=== PATIENT | female | born 1965 | race Caucasian/White ===

== ENCOUNTER 2018-03-12 19:08 | Emergency (ER) | payer MEDICARE, MEDICAID ==
[2018-03-12] MEDS ORDERED: Ketorolac 30 MG/ML SDV IM ONE (20:25)
[2018-03-12] MEDS ORDERED: Ondansetron 4 MG Tab.DIS PO ONE (20:29)
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
--- NOTE | 2018-03-15 08:44 | CR ---
Wrist Comp Min 3V Lt CLINICAL HISTORY: Fall FINDINGS: There is a impacted fracture distal radius. Ulna appears intact. Carpal bones show no fract ure or subluxation Impression: Impacted fracture distal radius
== END 2018-03-12 21:55 | disposition home or self-care (01) ==
LOC: JP.ED 19:08
DX: S52.502A Unspecified fracture of the lower end of left radius, initial encounter for closed fracture (principal); F17.210 Nicotine dependence, cigarettes, uncomplicated; Z88.8 Allergy status to other drugs, medicaments and biological substances; Y04.0XXA Assault by unarmed brawl or fight, initial encounter
CPT/HCPCS: 29125; 73110; 96372; 99284; A9270; J1885; 99282-25

== ENCOUNTER 2018-05-30 01:34 | Emergency (ER) | payer MEDICARE, MEDICAID ==
--- NOTE | 2018-05-30 02:26 | EDM.PDOC ---
ED HPI GENERAL MEDICAL PROBLEM - General Chief Complaint: Skin Complaint Stated Complaint: POISON JEANA Time Seen by Provider: 05/30/18 02:15 Source of Information: Reports: Patient, RN Notes Reviewed History Limitations: Reports: No Limitations - History of Present Illness INITIAL COMMENTS - FREE TEXT/NARRATIVE: 52-year-old female presents emergency department today with an open wound on her forehead she does admit to scratching this, review of old medical records from the assented clinic she does have history of opioid use and dependence as well as methamphetamine use is currently on Suboxone Head Pain Score (Numeric/FACES): 8 - Related Data Allergies Allergy/AdvReac Type Severity Reaction Status Date / Time Sulfa (Sulfonamide Allergy Hives Verified 05/30/18 01:55 Antibiotics) sumatriptan [From Imitrex] Allergy Cannot Verified 05/30/18 01:55 Remember erogamide Allergy Other Uncoded 05/30/18 01:55 triptans Allergy Arrhythmias Uncoded 05/30/18 01:55 Home Meds: Home Meds Buprenorphine HCl/Naloxone HCl [Suboxone 4 mg-1 mg Sl Film] 2 each SL TID [History] Diclofenac Sodium 1 applic TOP DAILY 05/30/18 [History] Past Medical History Gastrointestinal History: Reports: Cholelithiasis, Hiatal Hernia, Other (See Below) Other Gastrointestinal History: appendectomy Genitourinary History: Reports: Pyelonephritis, UTI, Recurrent 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: Reports: Endometriosis, Other (See Below) Other 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: ovarian cyst Musculoskeletal History: Reports: Amputation, Fracture Other Musculoskeletal History: L distal radius Neurological History: Reports: CVA, Migraines Psychiatric History: Reports: Depression Endocrine/Metabolic History: Reports: Other (See Below) Other Endocrine/Metabolic History: RSD, "breast" bone fracture - Infectious Disease History Infectious Disease History: Reports: MRSA - Past Surgical History GI Surgical History: Reports: Appendectomy, Cholecystectomy Female Surgical History: Reports: Section, Oophorectomy, Tubal Ligation Social & Family History - Tobacco Use Smoking Status *Q: Current Every Day Smoker Years of Tobacco use: 35 Packs/Tins Daily: 0.5 - Caffeine Use Caffeine Use: Reports: Coffee - Recreational Drug Use Recreational Drug Use: No ED ROS GENERAL - Review of Systems Review Of Systems: See Below Constitutional: Reports: No Symptoms Skin: Reports: Erythema, Wound ED EXAM, SKIN/RASH Exam: See Below Text/Narrative:: Examination of the integument system on the face there are a couple open wounds consistent with the itch scratch cycle there is some granulation within the mild amount erythema around the wound consistent with local wound infection Exam Limited By: No Limitations General Appearance: Alert, WD/WN, No Apparent Distress Course - Vital Signs Last Recorded V/S: Last Vital Signs Temp 96.4 F 05/30/18 01:52 Pulse 83 05/30/18 01:52 Resp 18 05/30/18 01:52 BP 146/93 H 05/30/18 01:52 Pulse Ox 97 05/30/18 01:52 Departure - Departure Time of Disposition: 02:25 Disposition: Home, Self-Care 01 Condition: Good Clinical Impression: Wound infection - Discharge Information Referrals: PCP,None [Primary Care Provider] - Additional Instructions: Take full course of antibiotics, Please followup with your primary care provider in 3-5 days if not better, please call return to the emergency department with worsening of symptoms. - Assessment/Plan Plan: Assessment Acuity = acute Site and laterality = local wound infection Etiology = probably secondary to its scratch cycle Manifestations = none Location of injury = Home Lab values = none Plan Placed on clindamycin 150 mg by mouth every 6 hours 7 days, follow-up primary care 3-5 days if not better This note was dictated using [employer] voice recognition software please call with any questions on syntax or grammar.
== END 2018-05-30 02:35 | disposition home or self-care (01) ==
LOC: JP.ED 01:34
DX: S01.80XA Unspecified open wound of other part of head, initial encounter (principal); L08.9 Local infection of the skin and subcutaneous tissue, unspecified; F17.210 Nicotine dependence, cigarettes, uncomplicated; Z88.0 Allergy status to penicillin; Z88.2 Allergy status to sulfonamides; Z79.899 Other long term (current) drug therapy; X58.XXXA Exposure to other specified factors, initial encounter
CPT/HCPCS: 99283

== ENCOUNTER 2018-10-15 10:58 | Emergency (ER) | payer MEDICARE, MEDICAID ==
--- NOTE | 2018-10-15 12:26 | EDM.PDOC ---
<Hanh Etienne N - Last Filed: 10/15/18 12:18> ED HPI GENERAL MEDICAL PROBLEM - General Chief Complaint: Back Pain or Injury Stated Complaint: MEDICAL VIA [facility] Time Seen by Provider: 10/15/18 14:32 Source of Information: Reports: Patient - History of Present Illness INITIAL COMMENTS - FREE TEXT/NARRATIVE: Muriel is a 53-year-old female who presents to the ER by ambulance after spending the night in her car. States she [facility] night and was unable to start her car to return home. She reports that she took 100 mg Lyrica prior to leaving the house, and felt significant drowsiness which caused her to fall asleep in the car for the majority of the night. She did wake up with bilateral numbness in her lower extremities up to her knees, but was able to walk into [facility] and ask for help. She reports experiencing coldness, fatigue, lethargy, anxiety, and difficulty breathing at the time, which have mostly resolved. On presentation, she is moderately anxious and reports ongoing muscle cramps throughout her body. The Vargas hugger is in place. Reports worsening chronic back and right wrist pain, but states she has missed 2 Suboxone doses. She denies any recent use of alcohol or illicit drugs. 8 Pain Score (Numeric/FACES): 8 - Related Data Allergies Allergy/AdvReac Type Severity Reaction Status Date / Time Sulfa (Sulfonamide Allergy Hives Verified 10/15/18 11:37 Antibiotics) sumatriptan [From Imitrex] Allergy Cannot Verified 10/15/18 11:37 Remember erogamide Allergy Other Uncoded 10/15/18 11:37 triptans Allergy Arrhythmias Uncoded 10/15/18 11:37 Home Meds: Home Meds Buprenorphine HCl/Naloxone HCl [Suboxone 4 mg-1 mg Sl Film] 2 each SL TID [History] Diclofenac Sodium 1 applic TOP DAILY 05/30/18 [History] Diclofenac Sodium [Voltaren] 10/15/18 [History] Pregabalin [Lyrica] 10/15/18 [History] Past Medical History Gastrointestinal History: Reports: Cholelithiasis, Hiatal Hernia, Other (See Below) Other Gastrointestinal History: appendectomy Genitourinary History: Reports: Pyelonephritis, UTI, Recurrent 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: Reports: Endometriosis, Other (See Below) Other 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: ovarian cyst Musculoskeletal History: Reports: Amputation, Fracture Other Musculoskeletal History: L distal radius Neurological History: Reports: CVA, Migraines Psychiatric History: Reports: Depression Endocrine/Metabolic History: Reports: Other (See Below) Other Endocrine/Metabolic History: RSD, "breast" bone fracture - Infectious Disease History Infectious Disease History: Reports: MRSA - Past Surgical History GI Surgical History: Reports: Appendectomy, Cholecystectomy Female Surgical History: Reports: Section, Oophorectomy, Tubal Ligation Social & Family History - Tobacco Use Smoking Status *Q: Current Every Day Smoker Years of Tobacco use: 30 Packs/Tins Daily: 1 - Caffeine Use Caffeine Use: Reports: Coffee ED ROS GENERAL - Review of Systems Constitutional: Reports: Weakness, Fatigue HEENT: Reports: No Symptoms Respiratory: Reports: No Symptoms Cardiovascular: Reports: Edema. Denies: Chest Pain, Palpitations Endocrine: Reports: Fatigue GI/Abdominal: Reports: Abdominal Pain (RUQ discomfort). Denies: Constipation, Diarrhea, Nausea, Vomiting Musculoskeletal: Reports: Arm Pain (Right wrist), Back Pain, Other (Muscle cramps) Skin: Reports: Other (Coolness) Neurological: Reports: Numbness (Feet bilaterally), Weakness Psychiatric: Reports: Anxiety, Mood Lability ED EXAM,LOWER BACK PAIN/INJURY - Physical Exam Exam Limited By: Altered Mental Status General Appearance: Anxious, Mild Distress Eye Exam: Bilateral Eye: Normal Inspection Ears: Normal External Exam, Normal Canal, Hearing Grossly Normal, Normal TMs Nose: Normal Inspection Throat/Mouth: Normal Inspection, Normal Lips, Normal Oropharynx, Normal Voice Head: Atraumatic, Normocephalic. No: Facial Tenderness Neck: Normal Inspection Respiratory/Chest: No Respiratory Distress, Lungs Clear, Normal Breath Sounds Cardiovascular: Regular Rate, Rhythm, Other (Trace edema in lower extremities bilaterally) GI/Abdominal: Normal Bowel Sounds, Soft, Non-Tender, No Distention, No Mass (Female) Exam: Deferred Rectal (Female) Exam: Deferred Back Exam: Normal Inspection, Vertebral Tenderness Extremities: Normal Inspection Neurological: Alert, Other Psychiatric: Anxious, Tearful Skin Exam: Warm, Dry, Intact Course - Vital Signs Last Recorded V/S: Last Vital Signs Temp 93.8 F L 10/15/18 11:47 Pulse 70 10/15/18 11:47 Resp 19 10/15/18 11:47 BP 131/85 10/15/18 11:47 Pulse Ox 98 10/15/18 11:47 - Orders/Labs/Meds Orders: Active Orders 24 hr Category Date Time Status EKG Documentation Completion [RC] ASDIRECTED Care 10/15/18 12:16 Active Chest 1V Frontal [CR] Stat Exams 10/15/18 12:14 Taken DRUG SCREEN, URINE [URCHEM] Stat Lab 10/15/18 12:14 Ordered UA W/MICROSCOPIC [URIN] Stat Lab 10/15/18 12:14 Ordered EKG 12 Lead [EK] Routine Ther 10/15/18 12:14 Ordered Labs: Laboratory Tests 10/15/18 10/15/18 10/15/18 Range/Units 12:35 12:35 12:35 WBC 10.1 (4.5-11.0) K/uL RBC 3.93 (3.30-5.50) M/uL Hgb 11.7 L (12.0-15.0) g/dL Hct 36.3 (36.0-48.0) % MCV 92 (80-98) fL MCH 30 (27-31) pg MCHC 32 (32-36) % Plt Count 236 (150-400) K/uL Neut % (Auto) 73 H (36-66) % Lymph % (Auto) 17 L (24-44) % [place] % (Auto) 7 H (2-6) % Eos % (Auto) 3 (2-4) % Baso % (Auto) 1 (0-1) % PT 11.1 (9.5-12.0) sec INR 1.01 (0.80-1.20) Sodium 140 (140-148) mmol/L Potassium 3.9 (3.6-5.2) mmol/L Chloride 105 (100-108) mmol/L Carbon Dioxide 27 (21-32) mmol/L Anion Gap 7.8 (5.0-14.0) mmol/L BUN 20 H (7-18) mg/dL Creatinine 0.7 (0.6-1.0) mg/dL Est Cr Clr Drug Dosing 79.98 mL/min Estimated GFR (MDRD) > 60 (>60) Glucose 92 (74-106) mg/dL Calcium 8.9 (8.5-10.1) mg/dL Total Bilirubin 0.2 (0.2-1.0) mg/dL AST 13 L (15-37) U/L ALT 21 (12-78) U/L Alkaline Phosphatase 98 (46-116) U/L Creatine Kinase 87 (26-192) U/L Total Protein 6.9 (6.4-8.2) g/dL Albumin 3.2 L (3.4-5.0) g/dL Globulin 3.7 H (2.3-3.5) g/dL Albumin/Globulin Ratio 0.9 L (1.2-2.2) Departure - Departure Disposition: Home, Self-Care 01 Clinical Impression: Hypothermia Qualifiers: Encounter type: initial encounter Qualified Code(s): T68.XXXA - Hypothermia, initial encounter - Discharge Information Referrals: PCP,None [Primary Care Provider] - Forms: ED Department Discharge Additional Instructions: Please followup with your primary care provider in 3-5 days if not better, please call return to the emergency department with worsening of symptoms. <Reagan Mcfarlane - Last Filed: 10/15/18 14:32> ED ROS GENERAL - Review of Systems Review Of Systems: See Below ED EXAM,LOWER BACK PAIN/INJURY - Physical Exam Exam: See Below Text/Narrative:: Agree with the nurse practitioner students exam Departure - Departure Time of Disposition: 14:30 Condition: Fair - Assessment/Plan Plan: Assessment Acuity = acute Site and laterality = mild hypothermic event Etiology = long-term cold exposure Manifestations = none Location of injury = Home Lab values = CBC, CMP, troponin, CK, INR within normal limits EKG demonstrates a sinus rhythm no ST changes or depressions, chest x-ray shows no acute process Plan She was able to tolerate full liquids, felt she was back to her baseline, plan to discharge to home follow-up with her primary care as needed Reagan Weber MD was personally available for consultation in the ED. I have reviewed the chart and agree with the documentation as recorded by the nurse practitioner student, including the assessment, treatment plan and disposition. Reagan Weber MD personally saw and examined the patient. I have reviewed and agree with the nurse practitioner student's findings. This note was dictated using [employer] voice recognition software please call with any questions on syntax or grammar.
== END 2018-10-15 15:45 | disposition home or self-care (01) ==
LOC: JP.ED 10:58
DX: T68.XXXA Hypothermia, initial encounter (principal); F17.210 Nicotine dependence, cigarettes, uncomplicated; Z88.2 Allergy status to sulfonamides; Z91.048 Other nonmedicinal substance allergy status
CPT/HCPCS: 36415; 71045; 80053; 82550; 85025; 85610; 93005; 93010; 99285-25

== ENCOUNTER 2019-02-05 16:46 | Emergency (ER) | payer MEDICARE, MEDICAID ==
[2019-02-05] MEDS ORDERED: Ketorolac 30 MG/ML SDV IVPUSH ONE (17:41)
[2019-02-05] MEDS ORDERED: diphenhydrAMINE 50 MG/ML SDV IVPUSH ONE (17:42)
[2019-02-05] MEDS ORDERED: Sodium Chloride 0.9% 10 ML Syringe FLUSH PRN (17:42)
[2019-02-05] MEDS ORDERED: Prochlorperazine 10 MG/2 ML SDV IVPUSH ONE (17:42)
--- NOTE | 2019-02-05 17:44 | EDM.PDOC ---
<OfficerReagan - Last Filed: 02/05/19 17:42> ED HPI GENERAL MEDICAL PROBLEM - General Chief Complaint: Headache Stated Complaint: CLUSTER MIGRAINE Time Seen by Provider: 02/05/19 16:55 Source of Information: Reports: Patient, RN Notes Reviewed History Limitations: Reports: No Limitations - History of Present Illness INITIAL COMMENTS - FREE TEXT/NARRATIVE: 53-year-old female presents emergency department today complaint of migraine- type headache, she did try her abortive medication at home without relief she states she has not had a migraine in several years this does feel typical for her she does have nausea vomiting and photophobia Headache Pain Score (Numeric/FACES): 9 - Related Data Allergies Allergy/AdvReac Type Severity Reaction Status Date / Time Sulfa (Sulfonamide Allergy Hives Verified 02/05/19 17:21 Antibiotics) sumatriptan [From Imitrex] Allergy Cannot Verified 02/05/19 17:21 Remember erogamide Allergy Other Uncoded 02/05/19 17:21 triptans Allergy Arrhythmias Uncoded 02/05/19 17:21 Home Meds: Home Meds Buprenorphine HCl/Naloxone HCl [Suboxone 4 mg-1 mg Sl Film] 2 each SL DAILY 11/15 [History] Pregabalin [Lyrica] 150 mg PO BEDTIME 10/15/18 [History] Acetaminophen/Butalbital/Caff [Fioricet 325-50-40 MG] 1 each PO DAILY PRN #12 tab 02/05/19 [Rx] Ondansetron [Ondansetron ODT] 4 mg PO Q8HR 02/05/19 [History] tiZANidine [Zanaflex] 4 mg PO Q6H 02/05/19 [History] valACYclovir HCl [Valtrex] 500 mg PO DAILY 02/05/19 [History] Past Medical History Respiratory History: Reports: COPD Gastrointestinal History: Reports: Cholelithiasis, Hiatal Hernia, Other (See Below) Other Gastrointestinal History: appendectomy Genitourinary History: Reports: Pyelonephritis, UTI, Recurrent NUT GRADER History: Reports: Endometriosis, Other (See Below) Other NUT GRADER History: ovarian cyst Musculoskeletal History: Reports: Amputation, Fracture, Fibromyalgia, Osteoarthritis Other Musculoskeletal History: L distal radius. si disfunction. rsd. spondolosis Neurological History: Reports: CVA, Migraines, Neuropathy, Peripheral Psychiatric History: Reports: Depression Endocrine/Metabolic History: Reports: Other (See Below) Other Endocrine/Metabolic History: RSD, "breast" bone fracture - Infectious Disease History Infectious Disease History: Reports: MRSA - Past Surgical History GI Surgical History: Reports: Appendectomy, Cholecystectomy Female Surgical History: Reports: Section, Oophorectomy, Tubal Ligation Social & Family History - Tobacco Use Smoking Status *Q: Current Every Day Smoker Years of Tobacco use: 42 Packs/Tins Daily: 0.5 - Caffeine Use Caffeine Use: Reports: Coffee, Soda - Recreational Drug Use Recreational Drug Type: Reports: Methamphetamine ED ROS GENERAL - Review of Systems Review Of Systems: See Below Constitutional: Reports: No Symptoms HEENT: Reports: Eye Pain Respiratory: Reports: No Symptoms Cardiovascular: Reports: No Symptoms GI/Abdominal: Reports: Nausea, Vomiting - Physical Exam Exam: See Below Exam Limited By: No Limitations General Appearance: Alert, WD/WN, No Apparent Distress Eye Exam: Bilateral Eye: EOMI, Normal Fundi, Normal Inspection, PERRL Throat/Mouth: No Airway Compromise Respiratory/Chest: No Respiratory Distress Course - Vital Signs Last Recorded V/S: Last Vital Signs Temp 37.0 C 02/05/19 17:16 Pulse 73 02/05/19 17:16 Resp 16 02/05/19 17:16 BP 158/97 H 02/05/19 17:16 Pulse Ox 98 02/05/19 17:16 - Orders/Labs/Meds Orders: Active Orders 24 hr Category Date Time Status Peripheral IV Care [RC] . DIRECTED Care 02/05/19 17:42 Active Sodium Chloride 0.9% [Normal Saline] 1,000 ml Med 02/05/19 17:45 Active IV ASDIRECTED Sodium Chloride 0.9% [Saline Flush] Med 02/05/19 17:42 Active 10 ml FLUSH ASDIRECTED PRN Peripheral IV Insertion Adult [OM.PC] Urgent Oth 02/05/19 17:41 Ordered Medication Orders Sodium Chloride (Normal Saline) 1,000 mls @ 999 mls/hr IV ASDIRECTED ORALIA Last Admin: 02/05/19 17:58 Dose: 999 mls/hr Sodium Chloride (Saline Flush) 10 ml FLUSH ASDIRECTED PRN PRN Reason: Keep Vein Open Last Admin: 02/05/19 18:11 Dose: 10 ml Meds: Medications Generic Name Dose Route Start Last Admin Trade Name Corby PRN Reason Stop Dose Admin Sodium Chloride 1,000 mls @ 999 mls/hr 02/05/19 17:45 02/05/19 17:58 Normal Saline IV 999 mls/hr ASDIRECTED ORALIA Administration Sodium Chloride 10 ml 02/05/19 17:42 02/05/19 18:11 Saline Flush FLUSH 10 ml ASDIRECTED PRN Administration Keep Vein Open Discontinued Medications Generic Name Dose Route Start Last Admin Trade Name Corby PRN Reason Stop Dose Admin Diphenhydramine HCl 50 mg 02/05/19 17:42 02/05/19 18:10 Benadryl IVPUSH 02/05/19 17:43 Not Given ONETIME ONE Haloperidol Lactate 2.5 mg 02/05/19 17:58 02/05/19 18:04 Haldol IVPUSH 02/05/19 17:59 2.5 mg ONETIME ONE Administration Ketorolac Tromethamine 30 mg 02/05/19 17:41 02/05/19 17:59 Toradol IVPUSH 02/05/19 17:42 30 mg ONETIME ONE Administration Prochlorperazine Edisylate 5 mg 02/05/19 17:42 02/05/19 18:00 Compazine IVPUSH 02/05/19 17:43 5 mg ONETIME ONE Administration Departure - Departure Disposition: Home, Self-Care 01 Clinical Impression: Migraine, Elevated blood pressure reading - Discharge Information Prescriptions: Acetaminophen/Butalbital/Caff [Fioricet 325-50-40 MG] 1 each PO DAILY PRN #12 tab PRN Reason: Headache Instructions: Recurrent Migraine Headache, [id number], Pain Medicine Instructions, [id number], Hypertension, How to Take Your Blood Pressure Referrals: Jacques Rosenberg Sr, MD [Primary Care Provider] - Forms: ED Department Discharge Additional Instructions: HEADACHE MIGRAINE 1. DECREASED ACTIVITY X 24 HOURS 2. FIORCET as needed for headache and pain. Caution with additional medications. 3. TYLENOL (ACETAMINOPHEN) 4000MG PER 24 HOUR (1000MG EVERY 6 HOURS) for mild pain and fever. 4. If headache reoccurs consider Ibuprofen 800 mg or Naproxen 440 to 500mg and Benadryl 50mg with a nap in a dark room. 5. CALL PCP THIS WEEK FOR AN APPOINTMENT TO DISCUSS YOUR HEADACHE IF CONTINUES GREATER THAN 72 hour. 6. RETURN FOR INCREASED SYMPTOMS, FEVER, CHANGE IN HEADACHES CHARACTER, NUMBNESS /TINGLING, CHANGING IN VISION, DEHYDRATION DUE TO FREQUENT VOMITING, ANY NEW CONCERNS OR CHANGES. Discharge Instructions Headache You were seen today for a headache. Headaches may be caused by many different things such as muscle tension, sinus inflammation, anxiety and stress, having too little sleep, too much alcohol, some medical conditions or injury. You may have a migraine, which is caused by changes in the blood vessels in your head. At this time your provider does not find that your headache is a sign of anything dangerous or life-threatening. However, sometimes the signs of serious illness do not show up right away. Generally, every Emergency Department visit should have a follow-up clinic visit with either a primary or a specialty clinic/provider. Please follow-up as instructed by your emergency provider today. Return to the clinic or Local Emergency Department if: You get a new fever of 100.4F or higher. Your headache gets much worse. You get a stiff neck with your headache. You get a new headache that is significantly different or worse than headaches you have had before. You are vomiting (throwing up) and cannot keep food or water down. You have blurry or double vision or other problems with your eyes. You have a new weakness on one side of your body. You have difficulty with balance which is new. You or your family thinks you are confused. You have a seizure. What can I do to help myself? Pain medications - You may take a pain medication such as Tylenol ( acetaminophen), Advil, Motrin (ibuprofen) or Aleve (naproxen). Take a pain reliever as soon as you notice symptoms. Starting medications as soon as you start to have symptoms may lessen the amount of pain you have. Relaxing in a quiet, dark room may help. Get enough sleep and eat meals regularly. You may need to watch for certain foods or other things which may trigger your headaches. Keeping a journal of your headaches and possible triggers may help you and your primary provider to identify things which you should avoid which may be causing your headaches. If you were given a prescription for medicine here today, be sure toread all of the information (including the package insert) that comes with your prescription. This will include important information about the medicine, its side effects, and any warnings that you need to know about. The pharmacist who fills the prescription can provide more information and answer questions you may have about the medicine. If you have questions or concerns that the pharmacist cannot address, please call or return to the Emergency Department. Remember that you can always come back to the Emergency Department if you are not able to see your regular provider in the amount of time listed above, if you get any new symptoms, or if there is anything that worries you. Discharge Instructions Migraine You were seen today for a headache that your provider thinks is likely a migraine. At this time your provider does not find that your headache is a sign of anything dangerous or life-threatening. However, sometimes the signs of serious illness do not show up right away. Generally, every Emergency Department visit should have a follow-up clinic visit with either a primary or a specialty clinic/provider. Please follow-up as instructed by your emergency provider today. Return to the Emergency Department if: You get a fever of 100.4F or higher. You get a stiff neck with your headache. You get a new headache that is different or worse than headaches you have had before. You are vomiting (throwing up) and cannot keep food or water down. You have blurry or double vision or other problems with your eyes. You have a new weakness on one side of your body. You have difficulty with balance which is new. You or your family thinks you are confused. You have a seizure. Treatment: Often, treatment for your migraine will take some time to make you headache stop. Going home to sleep can be very effective. Use your medications as directed; overuse of medications can actually cause headaches. Once your headache has gone away, avoid triggers such as certain foods, skipping meals, bright lights, changes in sleep, exercise and stress. Migraine headaches can have symptoms before the pain starts, like vision changes, funny smells/tastes, dizziness or other symptoms. Treating a headache as soon as the first symptoms come on is very important and gives the best chance of stopping the headache. If headaches are severe or frequent, you may need to start daily medication to prevent the headaches. Carbon monoxide can cause headaches, so not burning things in your home is important. Also get a carbon monoxide detector. Some medications for migraines may raise your blood pressure, so use with caution if you have high blood pressure or heart problems. If you were given a prescription for medicine here today, be sure toread all of the information (including the package insert) that comes with your prescription. This will include important information about the medicine, its side effects, and any warnings that you need to know about. The pharmacist who fills the prescription can provide more information and answer questions you may have about the medicine. If you have questions or concerns that the pharmacist cannot address, please call or return to the Emergency Department. Remember that you can always come back to the Emergency Department if you are not able to see your regular provider in the amount of time listed above, if you get any new symptoms, or if there is anything that worries you. <Yolis Caban - Last Filed: 02/05/19 18:54> Course - Re-Assessments/Exams Free Text/Narrative Re-Assessment/Exam: Patient was reevaluated she is resting comfortably in the exam room. He states headache is much improved. She rates it a 4 atenolol this time. Patient's no longer nauseated. [place] is anxious to get something to eat. Given crackers and milk. Patient states usually the Fioricet which is a migraine medication works but she was out of that medication. Patient would appreciate a prescription for Fioricet for home use. Patient will complete liter of fluids. Patient is comfortable being discharged home at this point in time. Patient's past medical history was reviewed. I visited the patient in the room where history was collected and physical examination was performed. I discussed further plan of care which included the above workup. IV was inserted and blood was drawn. I reviewed the physical examination findings with the patient and caregivers. The patient was given the above interventions. MDM: Muriel is a 53 yo female presents with a headache consistent with her typical migraine. Evaluation in the emergency department has been negative. Patient has not had any fever, weakness, numbness, paresthesia, neck stiffness, thunderclap, "worst ever" character, worst at onset character, seizures, vision changes or confusion. Meningitis, pseudo tumor, subarachnoid hemorrhage, ACLS NURSE tumor, venous thrombosis and stroke are considered as part of the differential, and considered unlikely. There has been no trauma to suggest subdural hemorrhage. I do not believe imaging is indicated at this time. Muriel's pain has improved with medication interventions. Patient should follow-up with primary physician within 3 days, If the headache continues or the frequency increases, outpatient consultation with neurology will be indicated. I recommended she return for worse pain, fever, vomiting, weakness, or any other concerns. Disposition: HOME I reevaluated the patient and discussed the results of the above workup. I discussed follow up instructions and signs and symptoms that should prompt return to the emergency department. The patient expressed understanding and the patient was discharged. Encouraged close follow up with PCP. Return to an ER if symptoms worsen or new symptoms develop. Patient/Family/Friend voiced understanding and agreed to treatment plan. 02/05/19 18:40 Departure - Departure Time of Disposition: 18:54 Condition: Good - Problem List & Annotations (1) Migraine SNOMED Code(s): 37949654 Code(s): G43.909 - MIGRAINE, UNSP, NOT INTRACTABLE, WITHOUT STATUS MIGRAINOSUS Status: Acute Current Visit: Yes (2) Elevated blood pressure reading SNOMED Code(s): 83465545 Code(s): R03.0 - ELEVATED BLOOD-PRESSURE READING, W/O DIAGNOSIS OF HTN Status: Acute Current Visit: Yes - Problem List Review Problem List Initiated/Reviewed/Updated: Yes
[2019-02-05] MEDS ORDERED: Sodium Chloride 0.9% 1,000 ML IV SCH (17:45)
[2019-02-05] MEDS ORDERED: Haloperidol Lactate 5 MG/ML SDV IVPUSH ONE (17:58)
== END 2019-02-05 19:14 | disposition home or self-care (01) ==
LOC: JP.ED 16:46
DX: G43.909 Migraine, unspecified, not intractable, without status migrainosus (principal); R03.0 Elevated blood-pressure reading, without diagnosis of hypertension; F17.210 Nicotine dependence, cigarettes, uncomplicated; J44.9 Chronic obstructive pulmonary disease, unspecified; Z79.899 Other long term (current) drug therapy; Z88.2 Allergy status to sulfonamides; Z88.8 Allergy status to other drugs, medicaments and biological substances
CPT/HCPCS: 96361; 96374; 96375; 99282; J0780; J1630; J1885; J7030